=== PATIENT | male | born 1940 | race Caucasian/White ===

== ENCOUNTER 2023-01-19 11:59 | Day surgery (SDC) | payer OTHER, SELFPAY ==
[2023-01-19] MEDS: LIDOCAINE 2% JELLY 10 ML UR (12:50)
--- NOTE | 2023-01-19 13:01 | PC.NURSE ---
bp 117/68, hr 78 [id number]
--- NOTE | 2023-01-19 13:14 | P.URPRC_ITS ---
Urology Procedure Note Procedure Note Date of procedure: 01/19/23 Pre-op diagnosis general: 1. BPH with lower urinary tract symptoms, 2. Bladder stones Post-op diagnosis procedure note: same as pre-op Procedure: Procedure: Cystoscopy Procedure in detail: After informed consent was obtained, the patient was brought to the operating room and remained on the patient gurney in supine position. The patient was prepped and draped in the usual sterile fashion for this procedure. An operative safety timeout was performed confirming the patient's identity and procedure, and all present agreed to proceed. I began by inserting lidocaine gel into the urethra. A flexible cystoscope was inserted per urethra without difficulty. No urethral strictures or lesions. Severe bilobar hypertrophy, near kissing lobes, tall. No intravesical protrusion . 1-2+ trabeculated bladder. Large inferior diverticulum with pile of bladder stones ranging from 5 mm to 1.5 cm, total burden ~ 2x3 cm. No bladder tumors, lesions or foreign bodies. Bilateral ureteral orificies orthotopic and patent. The cystoscope was remove and the patient tolerated the procedure well without complication. The patient was sent to the PACU in stable condition. Plan: - Discussed findings with son and patient. Given bother from stones and regrowth of BPH s/p Green light laser ablation by outside urologist 2006, risks/benefits of cystolitholapaxy and various outlet procedures discussed. Will call to schedule cystolitholapaxy using holmium laser, Urolift under general anesthesia. Goal is to limit catheter, risks and recovery time. 44 g prostate volume calculated on CT 08/2022. Anesthesia: local Surgeon: Mary Hernandez Estimated blood loss (mL): 0 Pathology: none sent Condition operative: stable Disposition: same day
== END 2023-01-19 13:15 | disposition home or self-care (01) ==
PROVIDERS: PCP Family Medicine; Visit Provider Urology
PROC: (CPT 52000; principal; 2023-01-19 12:30)
DX: N40.1 Benign prostatic hyperplasia with lower urinary tract symptoms (principal); N39.41 Urge incontinence; J44.9 Chronic obstructive pulmonary disease, unspecified; E78.5 Hyperlipidemia, unspecified; Z86.718 Personal history of other venous thrombosis and embolism; Z86.711 Personal history of pulmonary embolism; M81.0 Age-related osteoporosis without current pathological fracture; Z90.49 Acquired absence of other specified parts of digestive tract; Z79.82 Long term (current) use of aspirin; Z79.899 Other long term (current) drug therapy; N20.0 Calculus of kidney; N21.0 Calculus in bladder; N32.89 Other specified disorders of bladder
CPT/HCPCS: 52000